=== PATIENT | female | born 1955 ===

== ENCOUNTER → 2019-04-20 | Outpatient (CLI) | payer OTHER | LOC: LL.US 14:47 | PROVIDERS: ATTEND Nurse Practitioner Family | DX: E07.9 Disorder of thyroid, unspecified (principal); E04.2 Nontoxic multinodular goiter | CPT/HCPCS: 76536 ==

== ENCOUNTER 2023-09-01 06:45 | Emergency (ER) | payer MEDICARE, OTHER ==
[2023-09-01] MEDS: Acetaminophen 500 MG Tab PO ONE (09:06)
== END 2023-09-01 09:57 | disposition home or self-care (01) ==
LOC: LL.ED 06:45
DX: S60.212A Contusion of left wrist, initial encounter (principal); W51.XXXA Accidental striking against or bumped into by another person, initial encounter; Y93.66 Activity, soccer
CPT/HCPCS: 73110; 99283; A9270